=== PATIENT | female | born 1985 | race Two or more races ===

== ENCOUNTER 2024-08-12 05:40 | Day surgery (SDC) | payer MEDICAID, SELFPAY ==
--- NOTE | 2024-08-09 10:44 | ESHP_ITS ---
RE: BILL FOX : 1985 DATE OF ADMISSION: 08/12/2024 HISTORY OF PRESENT ILLNESS: This is a 38-year-old 3, para 3 with hematometra and cervical stenosis with dysmenorrhea, who presents for excision of cervical stenosis and evacuation of hematometra. ALLERGIES: NO KNOWN DRUG ALLERGIES. MEDICATIONS: Nexplanon 68 mg subdermal implant in left upper extremities. SOCIAL HISTORY: She denies any alcohol, drug use or smoking. She is a Guyanese speaker. PAST SURGICAL HISTORY: delivery x3. LEEP cone biopsy in 11/2013 and 06/2023. PAST MEDICAL HISTORY: Cervical dysplasia, delivery, endometriosis, pelvic adhesions, adenomyosis, high cholesterol. FAMILY HISTORY: Father has brain cancer. Mother migraines and diabetes. REVIEW OF SYSTEMS: She denies any headaches. She denies any chest pain, palpitations, shortness of breath or lower extremity pain. PHYSICAL EXAMINATION: VITAL SIGNS: Blood pressure is 120/72, heart rate 87, respirations 20, temperature is 98.6. HEENT: Oropharynx and sclerae are clear. LUNGS: Clear to auscultation bilaterally. HEART: Regular rate and rhythm. ABDOMEN: Old Pfannenstiel scar noted. PELVIC: Nontender. EXTREMITIES: Nontender. SKIN: No gross rashes or lesions. NEUROLOGIC: No focal deficit. ASSESSMENT AND PLAN: Cervical stenosis, hematometra, dysmenorrhea. Plan is excision of cervical stenosis, evacuation of hematometra, hysteroscopy, fractional dilation and curettage. Informed consent was obtained. The patient was made aware of the risks, complications, alternatives, and benefits of the proposed procedure and she agrees. She is aware of the risk of injury to bowel, bladder, uterus, adjacent organs, pulmonary embolism, deep vein thrombosis, pelvic infection, reoperation, repair injury to internal organs, anesthesia complications, the possibility that a laparotomy needs to be performed to repair organs or control bleeding and the possibility that the procedure is not able to be completed due to severe adhesions or technical difficulties. She verbalized understanding and agrees to proceed with the procedure with an understanding of the risks and complications. DT: 07:52:27 TT: 10:22:00 Ref: [id number] - TID: [id number] [facility]
[2024-08-11 10:06] VITALS: BMI 28.6
[2024-08-11 11:40] LABS: Partial Thromboplastin Time 25.1 Seconds (22.0-36.0)
[2024-08-11 11:41] LABS: Basophils # (Auto) 0.1 Thou/mm3 (0.0-0.2); Basophils % (Auto) 1 % (0-2.5); Eosinophils # (Auto) 0.1 Thou/mm3 (0.0-0.5); Eosinophils % (Auto) 2 % (0-10); Hematocrit 39.3 % (36.0-46.0); Hemoglobin 13.2 g/dL (12.0-16.0); Immature Granulocytes % (Auto) 1 % (0-0); Immature Granulocytes Auto 0.03 Thou/mm3 (0.00-0.00); Lymphocytes # (Auto) 2.1 Thou/mm3 (1.0-4.8); Lymphocytes % (Auto) 33 % (10-50); Mean Corpuscular HGB Conc 33.6 g/dl (31.0-37.0); Mean Corpuscular Hemoglobin 31.4 pg (25.0-35.0); Mean Corpuscular Volume 93 fL (80-100); Monocytes # (Auto) 0.6 Thou/mm3 (0.0-0.8); Monocytes % (Auto) 10 % (0-12); Neutrophils # (Auto) 3.4 Thou/mm3 (1.8-7.7); Neutrophils % (Auto) 54 % (37-80); Nucleated Red Blood Cell % 0 /100 WBC (0); Platelet Count 320 Thou/mm3 (140-440); RDW Standard Deviation 43.3 fL (36.4-46.3); Red Blood Count 4.21 Miln/mm3 (4.00-5.20); White Blood Count 6.3 Thou/mm3 (3.6-11.0)
[2024-08-11 11:47] LABS: Alanine Aminotransferase 16 U/L (10-49); Albumin, Serum 4.6 gm/dL (3.5-5.0); Albumin/Globulin Ratio 1.4 (1.2-2.2); Alkaline Phosphatase 113 U/L (46-116); Anion Gap 6 (7-16); Aspartate Amino Transferase 10 U/L (0-34); BUN/Creatinine Ratio 14 Ratio (12-20); Beta HCG,Quantitative 1 mIU/mL (<5.0); Bilirubin,Total 0.3 mg/dL (0.3-1.2); Blood Urea Nitrogen 10 mg/dL (9-23); Calcium 9.6 mg/dL (8.3-10.6); Calcium (Corrected) 9.6 mg/dL (8.5-10.1); Carbon Dioxide 23.9 mMol/L (20.0-31.0); Chloride 111 mMol/L (98-107); Creatinine (Component) 0.7 mg/dL (0.6-1.3); Estimated Creatinine Clearance 88.8 mL/min (>60); Globulin 3.2 gm/dL (2.3-3.5); Glucose 115 mg/dL (74-106); Osmolality,Calculated 281 (275-295); Sodium 141 mMol/L (136-145); Total Protein 7.8 gm/dL (5.7-8.2); eGFR > 60 See Note
--- NOTE | 2024-08-11 12:43 | SUR.PREOP ---
Pt notified to come in tomorrow at 0545 for surgery.
[2024-08-12] VITALS (9 sets, daily range): BP systolic 94–114; BP diastolic 57–78; PULSE 67–85; RESP 15–19; TEMP 36.6–36.7; O2SAT 98–100; BMI 28.8
[2024-08-12] MEDS: RINGERS LACTATED 1000 ML 1,000 ML 30 ML IV (06:09)
--- NOTE | 2024-08-12 08:26 | SUR.PHASEI ---
pt received from OR in recovery bay 1. pt obtunded, breathing unlabored on oxymask 6l, oral airway in place. v/s stable. pt dressing peripad cdi. maravilla catheter in place. report received from Dr. Porter and Aden ANGLIN.
[2024-08-12] MEDS: ACETAMINOPHEN IVPB 1,000 MG/100 ML VIAL 250 MG IV (09:00)
--- NOTE | 2024-08-12 09:02 | SUR.PHASEI ---
pt able to tolerate oral fluids without difficulty swallowing or nausea/vomiting.
--- NOTE | 2024-08-12 09:53 | SUR.PHASEII ---
pt awake and alert, breathing unlabored on room air. v/s stable. pt dressing peirpad cdi. maravilla in place. pt able to ambulate to wheelchair with steady gait. d/c instructions given with sister Adrianne in room using foreign language interpreter John [id number], all questions answered. pt d/c via wheelchair with all belongings.
--- NOTE | 2024-08-12 10:36 | ESOP_ITS ---
RE: BILL FOX : 1985 DATE OF OPERATION: 08/12/2024 PREOPERATIVE DIAGNOSES: 1. Cervical stenosis. 2. Hematometra. 3. Dysmenorrhea. POSTOPERATIVE DIAGNOSES: 1. Cervical stenosis. 2. Hematometra. 3. Dysmenorrhea. PROCEDURE PERFORMED: Cervical dilation, hysteroscopy, evacuation of hematometra, and placement of transurethral Burgess catheter for prolonged bladder drainage. SURGEON: Richard Jung DO TABLEMAN: None. ANESTHESIA: General. ANESTHESIOLOGIST: Dr. Porter. ESTIMATED BLOOD LOSS: 5 mL. COMPLICATIONS: Bladder perforation. SPECIMEN: None. FINDINGS: Pinpoint stenotic cervical os, 200 cc hematometra evacuated from endocervix and uterine cavity, and a 3 mm bladder perforation. DESCRIPTION OF PROCEDURE: After proper informed consent was obtained and the patient was made aware of the risks, complications, alternatives, and benefits of the proposed procedure, she was taken to the operating room where she underwent induction of general anesthesia. She was placed in the dorsal lithotomy position. She was prepped and draped in the usual sterile fashion. She received antibiotics. A timeout was performed. She underwent an exam under anesthesia. A bivalve speculum was placed in the vagina. A single-tooth tenaculum was used to grasp the anterior lip of the cervix. The cervical os was pinpoint dilators were used to dilate the cervix to accommodate the 3 mm diagnostic Omni hysteroscope. Once the cervix was slightly dilated, we began to see old blood draining from the endocervical os. The hysteroscope was then utilized to visualize the endocervix and a perforation was noted in the bladder approximately 3 mm. There was no active bleeding noted. We continued to observe the old blood draining from the endocervical os for 200 cc. A Burgess catheter was placed and clear yellow urine was noted. After no further drainage of old blood from the endocervix and all instruments were removed from the vagina. She was reversed from general anesthesia in the supine position and transferred to the recovery room in stable condition. She tolerated the procedure well. Counts were correct. I discussed with the patient's father the nature of her condition, intraoperative findings, expectation for recovery. All questions answered. I discussed with the patient postoperatively through the use of a blanchard grinder operator, the bladder perforation, the need for Burgess catheter bladder rest, and drainage for 10-14 days and I explained the need to maintain the Burgess leg bag and drain the catheter as needed. I advised her to take the antibiotics in the form of Macrobid b.i.d. while the Burgess catheter is in place. Discharge instructions given. Follow up in the office in 24 hours. DT: 09:47:56 TT: 10:35:00 Ref: [id number] - TID: [id number] MTDD
== END 2024-08-12 09:53 | disposition home or self-care (01) ==
PROVIDERS: PCP Family Medicine; Referring Provider Specialist; Visit Provider Specialist
PROC: 0U5B8ZZ Destruction of Endometrium, Via Natural or Artificial Opening Endoscopic (ICD-10-PCS; CPT 58563; principal; 2024-08-12 07:30)
DX: N88.2 Stricture and stenosis of cervix uteri (principal); E78.00 Pure hypercholesterolemia, unspecified; N85.7 Hematometra; N94.6 Dysmenorrhea, unspecified; Z83.3 Family history of diabetes mellitus
CPT/HCPCS: 58120; 36415; 80053; 84702; 85025; 85610; 85730; 86850; 86900; 86901; A4217; A4649; J0131; J0690; J1100; J1885; J2405; J2704; J3010; J7120

== ENCOUNTER 2024-08-27 08:26 | Emergency (ER) | payer MEDICAID, SELFPAY ==
[2024-08-27 08:27] VITALS: BMI 28.3
[2024-08-27 08:39] VITALS: BP 120/85; PULSE 80; RESP 16; TEMP 36.8; O2SAT 100
--- NOTE | 2024-08-27 08:49 | XR_ITS ---
Examination: CT abdomen with intravenous contrast CT pelvis with intravenous contrast 2-D coronal reconstructions 2-D sagittal reconstructions Date and time of exam:21/11/2024 1339 hours Comparison March 07, 2020 INDICATIONS: History bladder perforation and pelvic pain one week. CTDI: vol (mGy) 12.08 DLP: (mGycm) 634 Technique: Multiple axial sections of the abdomen and pelvis have been obtained. 64 slice high-resolution scanner used. 3 mm axial sections have been obtained, post intravenous injection 60 cc [id number] 2-D sagittal, coronal reconstructions obtained. Low dose protocols were performed. One or more of the following dose reduction techniques were used; automated exposure control, adjustment of the mA and/or KV according to patient size, use of iterative reconstruction technique. Findings: No focal liver or splenic lesions No gallstones No pancreatic or adrenal mass No renal or ureteral calculi, no hydronephrosis Aorta normal size Normal appendix No bowel obstruction Anteverted uterus with dilated endometrium in the lower uterine segment and cervix, measuring up to 15 mm The fundus exhibits irregular margins and contour The bladder is contracted around the urinary Burgess catheter and is grossly intact Moderate disc narrowing L5-S1 IMPRESSION: Abnormal uterus, dilated endometrium in the lower uterine segment and cervix and irregular uterine fundal margins, recommend transvaginal pelvic sonography follow-up Urinary bladder is contracted around a Burgess catheter in as well as a intact
--- NOTE | 2024-08-27 08:51 | EDRME_ITS ---
Rapid Medical Screening Exam RME Arrival date/time: 08/27/24 08:26 38-year-old female with a history of endometriosis and bladder perforation presents to the emergency room with a chief complaint of pelvic pain x 1 week. Patient was sent here by Dr Jung her BULLET SWAGING MACHINE ADJUSTER for a CT urogram. I have greeted and performed a focused initial assessment of this patient. A comprehensive ED assessment and evaluation of the patient, analysis of all test results, and completion of the medical decision making process will be conducted by additional ED providers. Chief Complaint: General Adult/Misc Complain Time Seen by Provider: 08/27/24 08:28 Vital signs: Vital Signs Temperature 98.2 F 08/27/24 08:39 Pulse Rate 80 08/27/24 08:39 Respiratory Rate 16 08/27/24 08:39 Blood Pressure 120/85 H 08/27/24 08:39 Pulse Oximetry (%) 100 08/27/24 08:39 Oxygen Delivery Method Room Air 08/27/24 08:39 Vital signs reviewed by provider: Yes
[2024-08-27 09:47] LABS: Basophils # (Auto) 0.1 Thou/mm3 (0.0-0.2); Basophils % (Auto) 1 % (0-2.5); Eosinophils # (Auto) 0.2 Thou/mm3 (0.0-0.5); Eosinophils % (Auto) 3 % (0-10); Hematocrit 37.6 % (36.0-46.0); Hemoglobin 12.8 g/dL (12.0-16.0); Immature Granulocytes % (Auto) 1 % (0-0); Immature Granulocytes Auto 0.06 Thou/mm3 (0.00-0.00); Lymphocytes % (Auto) 30 % (10-50); Mean Corpuscular Hemoglobin 31.2 pg (25.0-35.0); Mean Corpuscular Volume 92 fL (80-100); Monocytes # (Auto) 0.5 Thou/mm3 (0.0-0.8); Monocytes % (Auto) 8 % (0-12); Neutrophils # (Auto) 3.9 Thou/mm3 (1.8-7.7); Neutrophils % (Auto) 58 % (37-80); Nucleated Red Blood Cell % 0 /100 WBC (0); Platelet Count 327 Thou/mm3 (140-440); RDW Standard Deviation 40.7 fL (36.4-46.3); White Blood Count 6.8 Thou/mm3 (3.6-11.0)
[2024-08-27 09:55] LABS: HCG,Qualitative Serum Negative
[2024-08-27 09:59] LABS: Alanine Aminotransferase 13 U/L (10-49); Albumin, Serum 4.6 gm/dL (3.5-5.0); Albumin/Globulin Ratio 1.4 (1.2-2.2); Alkaline Phosphatase 120 U/L (46-116); Anion Gap 11 (7-16); Aspartate Amino Transferase 16 U/L (0-34); BUN/Creatinine Ratio 15 Ratio (12-20); Bilirubin,Total 0.4 mg/dL (0.3-1.2); Blood Urea Nitrogen 12 mg/dL (9-23); Calcium 9.5 mg/dL (8.3-10.6); Calcium (Corrected) 9.5 mg/dL (8.5-10.1); Carbon Dioxide 22.3 mMol/L (20.0-31.0); Chloride 107 mMol/L (98-107); Creatinine (Component) 0.8 mg/dL (0.6-1.3); Estimated Creatinine Clearance 77.2 mL/min (>60); Globulin 3.3 gm/dL (2.3-3.5); Glucose 107 mg/dL (74-106); Osmolality,Calculated 279 (275-295); Potassium 3.7 mMol/L (3.4-5.1); Sodium 140 mMol/L (136-145); Total Protein 7.9 gm/dL (5.7-8.2); eGFR > 60 See Note
[2024-08-27 10:05] LABS: Collection Type, Urine Clean Catch
[2024-08-27 10:38] LABS: Bacteria,Urine Rare; Bilirubin,Urine Negative (Negative); Blood,Urine 1+ (Negative); Calcium Oxalate Crystals,Urine 2+; Color,Urine Lt-Yellow (Lt Yel-Yel); Glucose, Urine Negative (Negative); Ketones,Urine Negative (Negative); Leukocyte Esterase,Urine Positive (Negative); Nitrite,Urine Positive (Negative); PH,Urine 6.5 (5.0-7.0); Protein,Urine 1+ (Neg - Trace); RBC,Urine 26 /hpf (0-3); Specific Gravity,Urine 1.021 (1.001-1.035); Squamous Epithelial Cell,Urine 1 /hpf (0-5); Urobilinogen,Urine Negative mg/dL (0.0-1.0); WBC,Urine 20 /hpf (0-5)
[2024-08-27 10:45] LABS: Clarity,Urine Hazy (Clear/Hazy); Culture Indicated,Urine Yes
--- NOTE | 2024-08-27 14:50 | EDNOTE_ITS ---
ED Female Urogenital RME/HPI General Chief complaint: General Adult/Misc Complain Stated complaint: SENT BY DR DEAN FOR CT UROGRAM & BLOOD WORK Time Seen by Provider: 08/27/24 08:28 Arrival date/time: 08/27/24 08:26 RME / HPI RME / HPI Narrative: 08/27/24 08:26 38-year-old female with a history of endometriosis and bladder perforation presents to the emergency room with a chief complaint of pelvic pain x 1 week. Patient was sent here by Dr Dean her COMMUNITY PRODUCT SPECIALIST for a CT urogram. I have greeted and performed a focused initial assessment of this patient. A comprehensive ED assessment and evaluation of the patient, analysis of all test results, and completion of the medical decision making process will be conducted by additional ED providers. DR. HELTON MAIN ED EVALUATION: 38 year old female with past medical history significant for recent bladder perforation from recent surgery by Dr. Dean on 08/12/2024; patient had cervical dilation, hysteroscopy, evacuation of hematometra, and placement of tr ansurethral Burgess catheter for prolonged bladder drainage. She had this surgery for cervical stenosis, hematometra, and hysmenorrhea. Patient was sent here by Dr Dean her COMMUNITY PRODUCT SPECIALIST for a CT urogram. Patient otherwise is asymptomatic and has no complaints. Denies any hematuria or bleeding from catheter. Related Data Home Medications ?Medication ?Instructions ?Recorded ?Confirmed cyclobenzaprine 10 mg tablet 10 mg PO Q8H PRN muscle s pasm 08/11/24 08/11/24 pregabalin 75 mg capsule 75 mg PO DAILY 08/11/2408/02 Previous Rx's ?Medication ?Instructions ?Recorded hydrocodone 5 mg-acetaminophen 325 1 tab PO Q6H PRN pa in #20 tabs 08/12/24 mg tablet nitrofurantoin 100 mg PO BID #20 caps 08/12 monohydrate/macrocrystals 100 mg capsule (Macrobid) Allergies Allergy/AdvReac Type Severity Reaction Status Date / Time No Known Allergies Allergy Verified 08/27/24 08:32 Review of Systems Review of Systems Systems Reviewed: All systems reviewed, normal except as documented Narrative Review of Systems: GEN: No fever, no chills, no weight loss EYES: No discharge, no visual changes, no pain HEENT: No ear pain, no congestion, no sore throat PULM: No shortness of breath, no cough, no congestion CV: No chest pain, no dyspnea on exertion, no palpitations GI: No nausea, no vomiting, no diarrhea, no pain, no constipation : No frequency, no urgency and no dysuria MUSC/SKEL: No joint pain, no back pain SKIN: No rash PSYCH: No hallucinations, no depression HEME/LYMPH: No easy bleeding or bruising tendencies NEURO: No weakness, no headache Past Medical History Past Medical History REPRODUCTIVE: Positive Previous Pregnancies OTHER HISTORY: Positive Chicken Pox Surgical History SURGICAL: Positive Section (x3) Social History SMOKING STATUS: Never smoker SECOND HAND EXPOSURE: No SUBSTANCE USE: does not use ALCOHOL: Never ED Exam Narrative Physical exam: GENERAL APPEARANCE: AxOx4, generally well-appearing, no acute distress. HEENT: NC, AT. MMM. EOMI, clear conjunctiva, oropharynx clear. NECK: Supple without lymphadenopathy. No stiffness or restricted ROM. HEART: Normal rate and regular rhythm, normal S1/S1, no m/r/g LUNGS: CTAB, moving air well. No crackles or wheezes are heard. ABDOMEN: Soft, nontender, nondistended with good bowel sounds heard. BACK: No midline C/T/L spine pain or deformity, No CVAT, no obvious deformity. EXTREMITIES: Without cyanosis, clubbing or edema. : Catheter in place. MUSCULOSKELETAL: FROM of all major joints, no chest tenderness NEUROLOGICAL: Grossly nonfocal. Alert and oriented, moving all 4 extremities. CN not formally tested but appear grossly intact. Observed to ambulate with normal gait. Skin: Warm and dry without any rash. Course Quality Measures none Orders Category Date Time Status Burgess [Urinary Catheter, Remove] ONCE Care 08/27/24 14:55 Completed Insert IV STAT Care 08/27/24 08:[address] urogram w con Stat Exams 08/27/24 08:49 Completed CBC Stat Lab 08/27/24 09:15 Completed CMP [Comprehensive Metabolic Panel] Stat Lab 08/27/24 09:15 Completed HCG,Qualitative Serum Stat Lab 08/27/24 09:15 Completed UA, C/S IF [Urinalysis, C/S if Indicated] Stat Lab 08/27/24 09:50 Completed Urine Culture Stat Lab 08/27/24 09:50 Received Vital Signs Vital signs: Vital Signs Temperature 98.2 F 08/27/24 08:39 Pulse Rate 80 08/27/24 08:39 Respiratory Rate 16 08/27/24 08:39 Blood Pressure 120/85 H 08/27/24 08:39 Pulse Oximetry (%) 100 08/27/24 08:39 Oxygen Delivery Method Room Air 08/27/24 08:39 Procedures -ED Procedure Comment Burgess catheter was removed. No complications. Urogenital - Female MDM Narrative MDM Narrative:: I, Spring Martel am scribing for and in the presence of Dr. Helton. Patient data External records reviewed:: [facility] previous records (Reviewed operative note by Dr. Dean, dated 08/12/24.) Clinical information provided by:: patient Social determinants that could affect healthcare access:: none Patient has the following chronic illnesses:: Recent bladder perforation from recent surgery by Dr. Dean on 08/12/2024; patient had cervical dilation, hysteroscopy, evacuation of hematometra, and placement of transurethral Burgess catheter for prolonged bladder drainage. She had this surgery for cervical stenosis, hematometra, and hysmenorrhea. How is presenting disease/condition affected by chronic disease/condition?: exacerbated by Evaluation data The following diagnostics were reviewed and interpreted by me:: lab results and radiology exam(s) Lab and/or radiology exams considered but not ordered:: none Interpretation Summary: Procedure(s): CT urogram w con Accession Number(s): [id number] cc: Johnny Fernandez; Richard Dean DO; Giovanni Lynne MD~ Examination: CT abdomen with intravenous contrast CT pelvis with intravenous contrast 2-D coronal reconstructions 2-D sagittal reconstructions Date and time of exam:21/11/2024 1339 hours Comparison March 07, 2020 INDICATIONS: History bladder perforation and pelvic pain one week. CTDI: vol (mGy) 12.08 DLP: (mGycm) 634 Technique: Multiple axial sections of the abdomen and pelvis have been obtained. 64 slice high-resolution scanner used. 3 mm axial sections have been obtained, post intravenous injection 60 cc [id number] 2-D sagittal, coronal reconstructions obtained. Low dose protocols were performed. One or more of the following dose reduction techniques were used; automated exposure control, adjustment of the mA and/or KV according to patient size, use of iterative reconstruction technique. Findings: No focal liver or splenic lesions No gallstones No pancreatic or adrenal mass No renal or ureteral calculi, no hydronephrosis Aorta normal size Normal appendix No bowel obstruction Anteverted uterus with dilated endometrium in the lower uterine segment and cervix, measuring up to 15 mm The fundus exhibits irregular margins and contour The bladder is contracted around the urinary Burgess catheter and is grossly intact Moderate disc narrowing L5-S1 IMPRESSION: Abnormal uterus, dilated endometrium in the lower uterine segment and cervix and irregular uterine fundal margins, recommend transvaginal pelvic sonography follow-up Urinary bladder is contracted around a Burgess catheter in as well as a intact Dictated By: Giovanni Lynne MD Medications / Prescriptions Medications or Prescriptions considered but not ordered:: none Medication administrations:: see above if any Consultations Consultation(s) initiated? (list below): No Diagnosis Urogenital Female Differential Diagnosis: urinary tract infection and dysmenorrhea Most likely diagnosis given after review of the tests above:: Encounter for Burgess catheter removal Bladder injury Admission Indicated Admission indicated?: not indicated Admission Request Was there a request for admission?: No Disposition Plan Disposition Plan: Discharge Discharge Attestation Discharge Attestation: The patient and all family members were given an opportunity to ask questions and understood the discharge instructions. Discharge instructions specifically effects, indications for sooner follow up or return to the emergency department, and the expected course of current diagnosis. Patient condition: Stable Discharge Plan Plan Patient Disposition: HOME (Self Care) Prescriptions/Referrals Prescriptions/Med Rec: No Action pregabalin 75 mg capsule 75 mg PO DAILY Patient Comments: TAKE 1 CAPSULE BY MOUTH TWICE DAILY cyclobenzaprine 10 mg tablet 10 mg PO Q8H PRN (Reason: muscle spasm) Patient Comments: TAKE 1 TABLET BY MOUTH THREE TIMES A DAY NEEDED FOR MUSCLE SPASM nitrofurantoin monohyd/m-cryst [Macrobid] 100 mg capsule 100 mg PO BID Qty: 20 0RF Rx Instructions: must administer with a meal/food hydrocodone-acetaminophen 5-325 mg tablet 1 tab PO Q6H MDD 4 PRN (Reason: pain) Qty: 20 0RF Rx Instructions: Patient had surgery Referrals: Richard Dean MD [Primary Care Provider] - In 1 week Problem List Clinical Impression: Encounter for Burgess catheter removal, Bladder injury Patient/Caregiver Discharge Instructions Education Materials: Dysuria Additional Instructions: Tras la retirada de la sonda Burgess, puede sentir dolor al orinar, que deber?a desaparecer en farideh o dos d?as. Contacte con el Dr. Dean ma?yoshi para un seguimiento minucioso. Puede regresar a urgencias antes si los s?ntomas empeoran o si nota alg?n problema nuevo o preocupante. Print Language: Armenian Stand Alone Forms: Jazmine Award Info., Patient Portal Info Letter
== END 2024-08-27 15:23 | disposition home or self-care (01) ==
PROVIDERS: Nurse Practitioner Family; Emergency Provider Emergency Medicine; PCP Specialist
DX: Z46.6 Encounter for fitting and adjustment of urinary device (principal); S37.29XD Other injury of bladder, subsequent encounter; X58.XXXD Exposure to other specified factors, subsequent encounter
CPT/HCPCS: 36415; 74177; 80053; 81001; 84703; 85025; 87086; 99285; A4649; Q9967